=== PATIENT | female | born 1995 | race Hispanic/Latino ===

== ENCOUNTER 2017-10-16 23:10 | Emergency (ER) | payer SELFPAY | END 2017-10-17 00:07 | disposition home or self-care (01) | LOC: EDH 23:10 | DX: B35.4 Tinea corporis (principal); Z91.030 Bee allergy status ==

== ENCOUNTER 2018-03-24 23:33 | Emergency (ER) | payer OTHER ==
[2018-03-25] MEDS ORDERED: CYCLOBENZAPRINE HCL 10 MG TABLET ONE (00:29)
[2018-03-25] MEDS ORDERED: KETOROLAC TROMETHAMINE 60 MG/2 ML VIAL ONE (00:29)
== END 2018-03-25 00:41 | disposition home or self-care (01) ==
LOC: EDH 23:33
DX: R07.89 Other chest pain (principal); Z91.030 Bee allergy status
CPT/HCPCS: 93005; 99283; J1885